=== PATIENT | male | born 1980 | race Caucasian/White ===

== ENCOUNTER 2017-08-13 18:37 | Emergency (ER) | payer SELFPAY ==
--- NOTE | 2017-08-13 19:15 | ERNOTE ---
Upper Extremity HPI - General Extremities Pain Location: elbow: left Time Seen by Provider: 08/13/17 18:49 Source: patient Exam Limitations: no limitations - Immun/Allergies/Home Medications Immunizations: IMMUNIZATION HX Immunizations Up to Date Yes History of Influenza Vaccine No Hx Pneumococcal Vaccination No Allergies/Adverse Reactions: Allergies Allergy/AdvReac Type Severity Reaction Status Date / Time No Known Drug Allergies Allergy Verified 08/13/17 18:47 Home Medications: HOME MEDICATIONS Diclofenac Sodium [Diclofenac 1% Topical Gel] 1 appl TP QID #100 gm 08/13/17 [ Last Taken Unknown] - History of Present Illness Narrative: Patient presents with what appears to be repetitive use injury of his left elbow. 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 He rates the pain as at least moderate to severe and he bumped it today and had a sharp exacerbation of pain. Occurred: other - has been getting progressively worse over the last 2 months Location of Incident: work Severity: moderate, severe Method of Injury: Reports: other - likely repetitive use Loss of Consciousness: Reports: no loss of consciousness Associated Symptoms: Reports: loss of power (lt arm) - secondary to pain Other Injuries: Reports: none Review of Systems - Review of Systems Constitutional: Present: See HPI EYE: Present: no symptoms reported ENT: Present: no symptoms reported Respiratory: Present: no symptoms reported Cardiology: Present: no symptoms reported Gastrointestinal/Abdominal: Present: no symptoms reported Genitourinary: Present: no symptoms reported Musculoskeletal: Present: See HPI Skin: Present: no symptoms reported Neurological: Present: no symptoms reported Endocrine: Present: no symptoms reported Hematologic/Lymphatic: Present: no symptoms reported Psych: Present: no symptoms reported - Patient's Past Medical History Patient History - Medical: No pertinent hx Patient History - Cardiac/Respiratory: No pertinent hx Patient History - Cancer: No Hx of Cancer Patient History - Surgical Procedures: No surgical history Patient History - Other: None - Social History Living Situations: home Psych History: No pertinent hx Smoking Status: Current every day smoker Alcohol Use: heavy Drug Use: marijuana - Immunizations Immunizations Up to Date: Yes Hx Pneumococcal Vaccination: No History of Influenza Vaccine: No Physical Exam - Physical Exam General Appearance: Present: wd/wn, alert, moderate distress Head Exam: Present: normal inspection, no evidence of injury Eye Exam: Normal inspection: bilateral, PERRL: bilateral Ears, Nose, Throat: Present: normal ENT inspection, H, normal pharynx Neck: Present: normal inspection, nontender Respiratory: Present: no respiratory distress, normal breath sounds, no accessory muscle use, chest nontender, lungs clear Cardiovascular/Chest: Present: regular rate, rhythm, no murmur, normal peripheral pulses Gastrointestinal/Abdominal: Present: normal bowel sounds, nontender, nondistended, soft, no organomegaly Rectal Exam: Present: deferred Male Genitals Exam: Present: deferred Back Exam: Present: normal inspection, normal range of motion Extremity Exam: Present: no edema, decreased range of motion - secondary to pain , bony tenderness - over the left lateral epicondyle Neurological Exam: Present: alert, oriented, normal mood/affect Skin Exam: Present: normal color, warm/dry Lymphatic Exam: Present: no adenopathy ED Progress - Vital Signs Patient's Vital Signs:: I have reviewed the patient's vital signs. Vital Signs: Vital Signs 08/13/17 18:42 Temperature 37.3 C Pulse Rate 84 Respiratory 18 Rate Blood Pressure 160/101 O2 Sat by Pulse 98 Oximetry - X-Ray X-Ray #1 X-Ray: elbow Interpretation: Reviewed by me - Progress/Reassessment Chief Complaint: Upper Extremity Injury/Problem Plan - Plan Plan: No acute abnormalities were noted on the x-ray examination. Patient will be given a prescription for diclofenac gel that he can apply to the lateral epicondyle twice a day. I will give the patient the name of the local orthopedic group as he may benefit from some steroid injections, possibly physical therapy and possibly even surgical intervention. Departure Clinical Impression: Lateral epicondylitis (tennis elbow) Qualifiers: Laterality: left Qualified Code(s): M77.12 - Lateral epicondylitis, left elbow - Departure Disposition: Home self-care Condition: Good Instructions: Tennis Elbow, [id number], Tendinitis, [id number], Tennis Elbow With Rehab-Sports[facility] Additional Instructions: Called Dr. Lindsay for an appointment Referrals: Osmani Lindsay MD [Staff Physician] - Prescriptions: Diclofenac Sodium [Diclofenac 1% Topical Gel] 1 appl TP QID #100 gm
[2017-08-13 19:21] VITALS: BP 136/85
== END 2017-08-13 19:20 | disposition home or self-care (01) ==
LOC: ER 18:37
DX: M77.12 Lateral epicondylitis, left elbow (principal); F17.210 Nicotine dependence, cigarettes, uncomplicated